=== PATIENT | female | born 2000 | race African-American/Black ===

== ENCOUNTER 2023-04-30 04:03 | Emergency (ER) | payer OTHER ==
[2023-04-30 04:15] VITALS: BP 113/74; PULSE 74; RESP 18; TEMP 97.7; BMI 22.8
[2023-04-30] MEDS ORDERED: SODIUM CHLORIDE 1,000 ML IV STA (04:25)
== END 2023-04-30 06:44 | disposition home or self-care (01) ==
LOC: JER 04:03
PROC: 3E0337Z Introduction of Electrolytic and Water Balance Substance into Peripheral Vein, Percutaneous Approach (ICD-10-PCS; principal; 2023-04-30)
DX: R06.02 Shortness of breath (principal); R11.0 Nausea; R10.13 Epigastric pain; T50.6X5A Adverse effect of antidotes and chelating agents, initial encounter
CPT/HCPCS: 99284-25